=== PATIENT | male | born 1960 | race Caucasian/White ===

== ENCOUNTER 2021-01-31 06:59 | Inpatient (IN) | payer OTHER ==
[~2021-01-31] VITALS: Ht 190.5 cm; Wt 143.2 kg
--- NOTE | 2021-01-31 07:47 | NUR ---
PT PLACED ON ALL ROOM MONITORING. MED STUDENT AND ERP IN TO ASSESS. IV PLACED, LABS DRAWN WITH START, NS BOLUS STARTED. URINAL AT BS. CALL LIGHT WITHIN REACH. RECHECK OF VS, BP ON BOTH ARMS CONSISTENT WITH TRIAGE.
[2021-01-31] MEDS ORDERED: LORazepam 2 MG/ML, 1ML ONE (07:54)
[2021-01-31] MEDS: LORazepam 2 MG/ML, 1ML IVPush PRN ×3 (07:56→13:26)
--- NOTE | 2021-01-31 07:56 | NUR ---
ATIVAN GIVEN PER ERP ORDER, NS INFUSING AT 250CC/HR. MED REQUEST FOR BANANA BAG SENT TO PHARM.
[2021-01-31] MEDS ORDERED: SODIUM CHLORIDE FLUSH 10ML SYR IVF ONE (08:00)
[2021-01-31] MEDS ORDERED: MAGNESIUM SULFATE 1 GM, THIAMINE 100 MG, FOLIC ACID 1 MG, MVI ADULT 10 ML in SODIUM CHL... IV ONE (08:00)
[2021-01-31] MEDS ORDERED: SODIUM CHLORIDE 0.9% 1,000 ML IV ONE (08:00)
[2021-01-31 08:03] LABS: BASOPHILS % (AUTO) 1 % (0-1); EOSINOPHILS % (AUTO) 1 % (1-7); LYMPHOCYTES % (AUTO) 21 % (22-44); MEAN CORPUSCULAR HEMOGLOBIN 37.6 pg (27.5-34.5); MEAN CORPUSCULAR HGB CONC 34.9 g/dL (33.2-36.2); MEAN PLATELET VOLUME 7.9 fL (7.4-10.4); MONOCYTES % (AUTO) 7 % (2-9); NEUTROPHILS % (AUTO) 72 % (42-75); PLATELET COUNT 141 x10^3/uL (130-400); RED BLOOD COUNT 5.04 x10^6/uL (4.38-5.82); RED CELL DISTRIBUTION WIDTH 17.7 % (9.4-14.8)
[2021-01-31 08:14] LABS: ALBUMIN 3.8 g/dL (3.4-5.0); ANION GAP 7 mmol/L (5-15); CALCIUM 9.7 mg/dL (8.5-10.1); CHLORIDE 97 mmol/L (98-107)
[2021-01-31 08:19] LABS: ALANINE AMINOTRANSFERASE 41 U/L (12-78); ALKALINE PHOSPHATASE 101 U/L (45-117); BILIRUBIN,TOTAL 2.5 mg/dL (0.2-1.0); CREATININE 0.94 mg/dL (0.7-1.3); TOTAL PROTEIN 8.2 g/dL (6.4-8.2)
[2021-01-31 08:37] LABS: ANISOCYTOSIS 1+
[2021-01-31 08:38] LABS: <PLATELET ESTIMATE> ADEQUATE; <PLT MORPHOLOGY> NORMAL PLT MORPH
[2021-01-31] MEDS ORDERED: POTASSIUM CHLORIDE 20 MEQ TAB.ER.PRT PO ONE (09:00)
[2021-01-31] MEDS ORDERED: POTASSIUM CHLORIDE 40 MEQ in SODIUM CHLORIDE 0.9% 500 ML IV ONE (09:00)
[2021-01-31] MEDS ORDERED: POTASSIUM CHLORIDE 20 MEQ TAB.ER.PRT ONE (09:01)
--- NOTE | 2021-01-31 09:06 | NUR ---
PT MEDICATED WITH POTASSIUM PO PER ERP ORDER. PCXR COMPLETED. MED REQUEST TO PHARM FOR POTASSIUM IV. PT TO CT.
--- NOTE | 2021-01-31 09:28 | NUR ---
PT BACK FROM CT.
--- NOTE | 2021-01-31 09:32 | NUR ---
2ND DOSE OF ATIVAN GIVEN. PT WITHOUT DIAPHORESIS, SLIGHT TREMOR TO HANDS AT THIS TIME. PT DENIES N/V, HALLUCINATIONS AT THIS TIME. HTN IMPROVED/UPDATED IN COMPUTER. CALL LIGHT WITHIN REACH.
[2021-01-31 10:30] LABS: ACETONE, SERUM Negative (Negative)
[2021-01-31] MEDS ORDERED: POTASSIUM CHLORIDE IV SCH (10:30)
[2021-01-31] MEDS ORDERED: LORazepam 1MG TABLET PO PRN ×4 (10:30)
[2021-01-31] MEDS ORDERED: ACETAMINOPHEN 325 MG TABLET PO PRN (10:30)
[2021-01-31] MEDS ORDERED: ENALAPRILAT 1.25 MG/ML, 2ML IVPush PRN (10:30)
[2021-01-31] MEDS ORDERED: [UNRECOGNIZED DRUG - OTHER] IV SCH (10:30)
[2021-01-31] MEDS ORDERED: ONDANSETRON ODT 4 MG PO PRN (10:30)
[2021-01-31] MEDS ORDERED: LORazepam 2 MG/ML, 1ML IV PRN ×5 (10:30)
[2021-01-31] MEDS ORDERED: LORazepam 0.5MG TABLET PO PRN (10:30)
[2021-01-31] MEDS ORDERED: ONDANSETRON 2MG/ML, 2ML IVPush PRN (10:30)
[2021-01-31] MEDS ORDERED: MAGNESIUM SULFATE IV SCH (10:30)
[2021-01-31] MEDS ORDERED: MVI ADULT IV SCH (10:30)
[2021-01-31] MEDS ORDERED: FOLIC ACID IV SCH (10:30)
[2021-01-31] MEDS ORDERED: DIAZEPAM 10 MG TABLET PO SCH (10:30)
--- NOTE | 2021-01-31 11:14 | NUR ---
REPORT TO ANDREE EASTMAN READY FOR TRANSPORT.
[2021-01-31 11:51] VITALS: BP 151/96
[2021-01-31 14:23] VITALS: BP 184/122
[2021-01-31 16:42] VITALS: BP 165/106
[2021-01-31 19:14] VITALS: BP 163/98
[2021-02-01 01:45] VITALS: BP 163/98
[2021-02-01 04:54] LABS: BASOPHILS % (AUTO) 3 % (0-1); EOSINOPHILS % (AUTO) 2 % (1-7); LYMPHOCYTES % (AUTO) 33 % (22-44); MEAN CORPUSCULAR HEMOGLOBIN 37.6 pg (27.5-34.5); MEAN CORPUSCULAR HGB CONC 34.5 g/dL (33.2-36.2); MEAN PLATELET VOLUME 8.1 fL (7.4-10.4); MONOCYTES % (AUTO) 6 % (2-9); NEUTROPHILS % (AUTO) 57 % (42-75); PLATELET COUNT 91 x10^3/uL (130-400); RED BLOOD COUNT 4.31 x10^6/uL (4.38-5.82); RED CELL DISTRIBUTION WIDTH 17.9 % (9.4-14.8)
[2021-02-01 05:08] LABS: ALBUMIN 3.1 g/dL (3.4-5.0); ANION GAP 1 mmol/L (5-15); CALCIUM 8.4 mg/dL (8.5-10.1); CHLORIDE 103 mmol/L (98-107)
[2021-02-01 05:12] LABS: ALANINE AMINOTRANSFERASE 41 U/L (12-78); ALKALINE PHOSPHATASE 78 U/L (45-117); CREATININE 0.54 mg/dL (0.7-1.3); TOTAL PROTEIN 6.6 g/dL (6.4-8.2)
[2021-02-01 06:40] VITALS: BP 183/114
[2021-02-01] MEDS ORDERED: MULTIVITAMINS/MINERALS TABLET PO SCH (09:00)
[2021-02-01 09:16] VITALS: BP 172/95
[2021-02-01] MEDS ORDERED: DIAZEPAM 5 MG TABLET PO SCH (10:30)
[2021-02-01 11:42] VITALS: BP 162/113
[2021-02-01] MEDS ORDERED: PANT20TA4 PO (12:08)
[2021-02-01] MEDS ORDERED: MULT-484 PO (12:08)
[2021-02-01] MEDS ORDERED: PANTOPRAZOLE 20MG TABLET PO SCH (16:00)
== END 2021-02-01 12:19 | disposition home or self-care (01) | DRG 74 ==
LOC: ED 08:05 → EDIP 08:52 → 4WST 11:32
PROVIDERS: ADMIT Hospitalist; ATTEND Hospitalist
DX: G62.1 Alcoholic polyneuropathy (principal); F10.139 Alcohol abuse with withdrawal, unspecified; E87.6 Hypokalemia; Z66 Do not resuscitate; I10 Essential (primary) hypertension; E66.9 Obesity, unspecified; Y90.9 Presence of alcohol in blood, level not specified; R16.0 Hepatomegaly, not elsewhere classified; I25.10 Atherosclerotic heart disease of native coronary artery without angina pectoris; Z95.5 Presence of coronary angioplasty implant and graft; Z68.39 Body mass index [BMI] 39.0-39.9, adult; Z79.899 Other long term (current) drug therapy
CPT/HCPCS: 36415; 96365; 99291; J7042; 70450; 71045; 74177; 80053; 80320; 82010; 83690; 83735; 84100; 85025; 93005; G0378; J3411; J3475; J3480; G0480; J2060; J7030; J7040